=== PATIENT | female | born 1995 ===

== ENCOUNTER 2017-04-25 16:41 | Emergency (ER) | payer BC ==
[2017-04-25 16:57] VITALS: PULSE 77
[2017-04-25] MEDS ORDERED: Sodium Chloride 0.9% 1,000 ML IV STA (17:38)
--- NOTE | 2017-04-25 17:46 | ED PDOC ---
Arrival/HPI - General Chief Complaint: GI Problem Time Seen by Provider: 04/25/17 17:14 Historian: Patient - History of Present Illness Narrative History of Present Illness (Text): 04/25/17 17:47 21 yo F presents with 2 day h/o N/V/D and intermittent abdominal pain which started yesterday morning after having a heavy meal the night before. Patient states that her symptoms are improving today but she continues to have abdominal pain with vomiting and diarrhea anytime she eats. Otherwise: (-) recent travel, (-) sick contacts, (-) fever, (-) urinary symptoms, (-) (-) melena, (-) hematochezia. Has no history of prior abdominal surgery. PMD ? name Past Medical History - Provider Review Nursing Documentation Reviewed: Yes - Cardiac Hx Cardiac Disorders: No - Pulmonary Hx Respiratory Disorders: No - Neurological Hx Neurological Disorder: No - HEENT Hx HEENT Disorder: No - Renal Hx Renal Disorder: No - Endocrine/Metabolic Hx Endocrine Disorders: No - Hematological/Oncological Hx Blood Disorders: No - Integumentary Hx Dermatological Disorder: No - Musculoskeletal/Rheumatological Hx Musculoskeletal Disorders: No - Gastrointestinal Hx Gastrointestinal Disorders: No - Genitourinary/Gynecological Hx Genitourinary Disorders: Yes Other/Comment: OVARIAN CYST - Psychiatric Hx Psychophysiologic Disorder: No Hx Substance Use: No Family/Social History - Physician Review Nursing Documentation Reviewed: Yes Family/Social History: Unknown Family HX Smoking Status: Never Smoked Hx Alcohol Use: Yes Frequency of alcohol use: Socially Hx Substance Use: No Allergies/Home Meds Allergies/Adverse Reactions: Allergies No Known Allergies Allergy (Verified 04/25/17 16:51) Review of Systems - Review of Systems Constitutional: absent: Fatigue, Weight Change, Fevers Respiratory: absent: SOB, Cough, Sputum Cardiovascular: absent: Chest Pain, Palpitations, Edema Gastrointestinal: Abdominal Pain, Diarrhea, Nausea, Vomiting Genitourinary Female: absent: Dysuria, Frequency, Hematuria Musculoskeletal: absent: Arthralgias, Back Pain, Neck Pain Skin: absent: Rash, Pruritis, Skin Lesions Physical Exam - Physical Exam Narrative Physical Exam (Text): 04/25/17 17:46 GENERAL APPEARANCE: Patient is awake, alert, oriented x 3, in no acute distress. SKIN: Warm, dry; (-) cyanosis. EYES: (-) conjunctival pallor, (-) scleral icterus. ENMT: Mucous membranes dry. NECK: (-) tenderness, (-) stiffness, (-) lymphadenopathy. CHEST AND RESPIRATORY: (-) rales, (-) rhonchi, (-) wheezes; breath sounds equal bilaterally. HEART AND CARDIOVASCULAR: (-) irregularity; (-) murmur, (-) gallop. ABDOMEN AND GI: (-) distention. Bowel sounds active; (-) tenderness, (-) guarding, (-) rebound, (-) palpable masses, (-) CVA tenderness. EXTREMITIES: (-) deformity, (-) edema, (+) distal pulses. NEURO AND PSYCH: Mental status as above; (-) focal findings. Vital Signs Temp Pulse Resp BP Pulse Ox 04/25/17 16:51 98.3 F 77 16 109/70 97 Medical Decision Making ED Course and Treatment: 04/25/17 17:43 21 yo F presents with 2 day h/o N/V/D and intermittent abdominal pain. Plan: -- Labs -- IV fluids -- Pepcid/ Zofran / Toradol -- Reassess and disposition Labs reviewed and are wnl. On reevaluation, patient reports improvement of abdominal pain and reports no nausea, vomiting or diarrhea while in the emergency room. On exam, patient is laying in bed comfortably in no acute distress, abdomen remains soft with no tenderness, no guarding, no rebound, no CVA tenderness. Diagnostic results discussed with the patient in great detail. Diagnosis of gastroenteritis discussed with the patient. Advised brat diet and to drink plenty of fluids. Based on history, exam and diagnostic results plan will be for outpatient follow -up. Patient instructed to follow up with primary care physician in 1-2 days without fail. Advised to take medication as prescribed. Return to the emergency room at any time for any new or worsening symptoms. Patient states she fully agrees with and understands discharge instructions. States that she agrees with the plan and disposition. Verbalized and repeated discharge instructions and plan. I have given the patient opportunity to ask any additional questions. - Lab Interpretations Lab Results: 04/25/17 17:30 04/25/17 17:30 Lab Results 04/25/17 17:30: Sodium 138, Potassium 3.7, Chloride 101, Carbon Dioxide 26, Anion Gap 15, BUN 9, Creatinine 0.6 L, Est GFR ( Amer) > 60, Est GFR (Non -Af Amer) > 60, Random Glucose 97, Calcium 9.0, Total Bilirubin 0.9, AST 24, ALT 35, Alkaline Phosphatase 77, Total Protein 7.3, Albumin 3.9, Globulin 3.4, Albumin/Globulin Ratio 1.2, Lipase 144 04/25/17 17:30: WBC 4.7, RBC 4.45, Hgb 13.0, Hct 38.8, MCV 87.2, MCH 29.2, MCHC 33.5, RDW 13.1, Plt Count 203, MPV 11.4 H, Gran % 56.5, Lymph % (Auto) 32.1, Cotton % (Auto) 9.1 H, Eos % (Auto) 1.9, Baso % (Auto) 0.4, Gran # 2.66, Lymph # 1.5, Cotton # 0.4, Eos # 0.1, Baso # 0.02 - Medication Orders Current Medication Orders: Discontinued Medications Famotidine (Pepcid) 20 mg IVP STAT STA Stop: 04/25/17 17:39 Last Admin: 04/25/17 18:30 Dose: 20 mg IVP Administration Document 04/25/17 18:30 (Rec: 04/25/17 18:38 [id number] Charges for Administration # of IVP Administrations 1 Sodium Chloride (Sodium Chloride 0.9%) 1,000 mls @ 1,000 mls/hr IV .Q1H STA Stop: 04/25/17 18:37 Last Admin: 04/25/17 18:30 Dose: 1,000 mls/hr eMAR Start Stop Document 04/25/17 18:30 (Rec: 04/25/17 18:39 [id number]) Intravenous Solution Start Date 04/25/17 Start Time 18:30 Ketorolac Tromethamine (Toradol) 30 mg IVP STAT STA Stop: 04/25/17 17:39 Last Admin: 04/25/17 18:33 Dose: 30 mg MAR Pain Assessment Document 04/25/17 18:33 (Rec: 04/25/17 18:38 [id number][facility] Pain Reassessment Is this a pain reassessment? Yes Presence of Pain Presence of Pain Yes Pain Scale Used Pain Scale Used Numeric Location Pain Location Body Site Abdomen Description Description Intermittent Intensity of Pain at present 4 Pain Behavior Guarding Aggravating Factors Changing Position Alleviating Factors/Management Relaxation Techniques Techniques Inactivity Alleviating Factors Inactivity IVP Administration Document 04/25/17 18:33 (Rec: 04/25/17 18:38 [id number]) Charges for Administration # of IVP Administrations 1 Ondansetron HCl (Zofran Inj) 4 mg IVP STAT STA Stop: 04/25/17 17:39 Last Admin: 04/25/17 18:30 Dose: 4 mg IVP Administration Document 04/25/17 18:30 (Rec: 04/25/17 18:39 [id number]) Charges for Administration # of IVP Administrations 1 - PA / BOOK RETAILER / Resident Statement MD/ has reviewed & agrees with the documentation as recorded. Disposition/Present on Arrival - Present on Arrival Any Indicators Present on Arrival: No History of DVT/PE: No History of Uncontrolled Diabetes: No Urinary Catheter: No History of Decub. Ulcer: No History Surgical Site Infection Following: None - Disposition Have Diagnosis and Disposition been Completed?: No Diagnosis: Gastroenteritis Disposition Time: 18:30 Patient Plan: Discharge Patient Problems: Current Active Problems Problem Status Onset Gastroenteritis Acute Condition: IMPROVED Discharge Instructions (ExitCare): Gastroenteritis (ED) Print Language: COMORAN Additional Instructions: Thank you for letting us take care of you today. You were treated for gastroenteritis. The emergency medical care you received today was directed at your acute symptoms. If you were prescribed any medication, please fill it and take as directed. It may take several days for your symptoms to resolve. Return to the Emergency Department if your symptoms worsen, do not improve, or if you have any other problems. Please contact your doctor in 2 days for re-evaluation and follow up. Bring any paperwork you were given at discharge with you along with any medications you are taking to your follow up visit. Our treatment cannot replace ongoing medical care by a primary care provider (PCP) outside of the emergency department. Thank you for allowing the [facility] team to be part of your care today. Prescriptions: Famotidine [Pepcid] 40 mg PO DAILY #20 tablet Ondansetron ODT [Zofran ODT] 4 mg PO DAILY PRN #20 odt PRN Reason: Nausea/Vomiting Referrals: [facility], [Primary Care Provider] - Follow up with primary Forms: [employer] (Persian)
[2017-04-25 17:48] LABS: BASO # 0.02 K/mm3 (0.0-2.0); BASO % 0.4 % (0.0-3.0); EOS # 0.1 (0.0-0.7); EOS % 1.9 % (1.5-5.0); GRAN # 2.66 (1.4-6.5); GRAN % 56.5 % (50.0-68.0); LYMPH # 1.5 (1.2-3.4); LYMPH % 32.1 % (22.0-35.0); MEAN CELL VOLUME 87.2 fl (80.0-105.0); MEAN CORPUSCULAR HEMOGLOBIN 29.2 pg (25.0-35.0); MEAN CORPUSCULAR HGB CONC 33.5 g/dl (31.0-37.0); MEAN PLATELET VOLUME 11.4 fl (7.0-11.0); MONO # 0.4 (0.1-0.6); MONO % 9.1 % (1.0-6.0); RBC 4.45 10^6/uL (3.5-6.1); RED CELL DISTRIBUTION WIDTH 13.1 % (11.5-14.5); WHITE BLOOD COUNT 4.7 10^3/ul (4.5-11.0)
[2017-04-25 18:02] LABS: ALB/GLOB RATIO 1.2 (1.1-1.8); ALBUMIN 3.9 g/dL (3.0-4.8); ALT/SGPT 35 U/L (7-56); AST/SGOT 24 U/L (14-36); BLOOD UREA NITROGEN 9 mg/dL (7-21); GFR AFRICAN-AMERICAN > 60; GFR NON-AFRICAN AMERICAN > 60; LIPASE 144 U/L (23-300)
[2017-04-25 19:21] VITALS: BP 110/65; RESP 18; TEMP 98.4; O2SAT 100
== END 2017-04-25 19:26 | disposition home or self-care (01) ==
LOC: ED 16:41
DX: K52.9 Noninfective gastroenteritis and colitis, unspecified (principal)
CPT/HCPCS: 80053; 83690; 85025; 96374; 96375; 99284; J1885; J2405; J7040